=== PATIENT | female | born 1990 | race African-American/Black ===

== ENCOUNTER 2020-03-01 10:49 | Emergency (ER) | payer SELFPAY ==
[~2020-03-01] VITALS: Ht 165.1 cm; Wt 95.3 kg
--- NOTE | 2020-03-01 10:57 | NUR ---
Jackelin simpson in [facility] - 03/01/20 at 1059 by [facility] PT WHEELCHAIRED TO ER BED 09
[2020-03-01 11:18] VITALS: BP 125/78
--- NOTE | 2020-03-01 11:22 | NUR ---
AMBULATED TO BED 12
[2020-03-01 12:00] LABS: BASOPHILS # (AUTO) 0.1 K/uL (0.00-0.22); BASOPHILS % (AUTO) 0.5 % (0.0-2.0); EOSINOPHILS # (AUTO) 0.2 K/uL (0-0.4); EOSINOPHILS % (AUTO) 1.6 % (0.0-4.0); HEMOGLOBIN 12.5 g/dL (12.0-16.0); LYMPHOCYTES # (AUTO) 1.9 K/uL (2.5-16.5); MEAN CORPUSCULAR HEMOGLOBIN 30 pg (27-31); MEAN CORPUSCULAR HGB CONC 33 g/dL (33-37); MEAN CORPUSCULAR VOLUME 90.7 fL (80-94); MONOCYTES # (AUTO) 0.7 K/uL (0.8-1.0); MONOCYTES % (AUTO) 6.3 % (1.7-9.3); NEUTROPHILS # (AUTO) 7.8 K/uL (1.8-7.7); NEUTROPHILS % (AUTO) 73.6 % (42.2-75.2); PLATELET COUNT (AUTO) 291 K/uL (140-450); RED BLOOD CELL COUNT(AUTO) 4.19 MIL/uL (4.20-5.40); RED CELL DISTRIBUTION WIDTH 13.3 % (11.6-13.7); WHITE BLOOD COUNT (AUTO) 10.6 K/uL (4.8-10.8)
[2020-03-01 12:14] LABS: APPEARANCE,URINE CLEAR (CLEAR); BILIRUBIN,URINE NEGATIVE (NEGATIVE); BLOOD, URINE NEGATIVE (NEGATIVE); COLOR,URINE YELLOW (YELLOW); LEUKOCYTE ESTERASE ,URINE NEGATIVE (NEGATIVE); NITRITE, URINE NEGATIVE (NEGATIVE); PH,URINE 7.5 (5.0-9.0); UGLUCOSE NEGATIVE (NEGATIVE)
--- NOTE | 2020-03-01 12:15 | NUR ---
PT C/O IS DEPRESSION. PT HAS A HISTORY OF DEPRESSION. PT IS WITHDRAWN AND CRYING. SHE STATES THAT SHE FEELS EVERYONE IS AGAINST HER. PT STATES THAT SHE FEELS EVERYTHING IS FALLING APART. PT STATES SHE IS LONELY AND ISOLATED. PT DENIES FEELINGS OF WANTING TO HURT HERSELF OR OTHERS. PT DENIES HEARING VOICES OR SEEING THINGS THAT ARE NOT THERE. PT STATES THAT NO ONE CAN HELP HER. PMHX: DEPRESSION. ALLERGIES: NAPROXEN
--- NOTE | 2020-03-01 12:17 | NUR ---
US AT BEDSIDE
--- NOTE | 2020-03-01 12:17 | NUR ---
TELEPSYCH REQUEST SENT
[2020-03-01 12:28] LABS: BARBITURATE, URINE NEGATIVE ng/ml (NEG <=200); BENZODIAZEPINE, URINE NEGATIVE ng/mL (NEG <=200); CANNABINOID, URINE NEGATIVE ng/mL (NEG <=50); COCAINE, URINE NEGATIVE ng/mL (NEG <=300); OPIATE, URINE NEGATIVE ng/mL (NEG <=2000); PHENCYCLIDINE SCREEN,URINE NEGATIVE ng/mL (NEG <=25)
[2020-03-01 12:41] LABS: ALBUMIN 3.5 g/dL (3.4-5.0); ANION GAP 11.8 (8-16); ASPARTATE AMINOTRANSFERASE 28 U/L (15-37); CARBON DIOXIDE 26.7 mmol/L (21-32); CHLORIDE 103 mmol/L (98-107); CREATININE 0.8 mg/dL (0.6-1.3); GFR ARICAN-AMERICAN 108 mL/min (>90); GLUCOSE 107 mg/dL (74-106); POTASSIUM 3.5 mmol/L (3.5-5.1); SODIUM SERUM 138 mmol/L (136-145); TOTAL BILIRUBIN 0.4 mg/dL (0.0-1.0); UREA NITROGEN, BLOOD 6 mg/dL (7-18)
--- NOTE | 2020-03-01 13:02 | NUR ---
PT IS CRYING IN BED. SPOKE TO PT TO COMFORT. TISSUES GIVEN.
[2020-03-01 14:00] VITALS: BP 125/78
--- NOTE | 2020-03-01 14:00 | NUR ---
PATIENT ELOPED FROM FACILITY. DISCHARGE INSTRUCTIONS NOT GIVEN TO PATIENT. DR. Hayes NOTIFIED.
== END 2020-03-01 14:00 | disposition left against medical advice (07) ==
LOC: MED 10:49
DX: O99.341 Other mental disorders complicating pregnancy, first trimester (principal); O26.891 Other specified pregnancy related conditions, first trimester; Z3A.01 Less than 8 weeks gestation of pregnancy; Z88.6 Allergy status to analgesic agent
CPT/HCPCS: 36415; 76801; 76830; 80053; 80305; 81003; 81025; 84702; 85025; 99285; G0482; Q0092; 99284